=== PATIENT | female | born 1955 | race Caucasian/White ===

== ENCOUNTER 2021-12-06 10:42 | Outpatient (CLI) | payer OTHER | END 2021-12-06 10:43 | disposition home or self-care (01) | LOC: DTY/OP 10:42 | PROVIDERS: ATTEND Specialist | DX: E66.01 Morbid (severe) obesity due to excess calories (principal) | CPT/HCPCS: 97802 ==

== ENCOUNTER 2022-01-02 06:54 | Outpatient (CLI) | payer MEDICARE | END 2022-01-02 06:55 | disposition home or self-care (01) | LOC: BICULT 06:54 | PROVIDERS: ATTEND Specialist | DX: R10.11 Right upper quadrant pain (principal); K80.20 Calculus of gallbladder without cholecystitis without obstruction | CPT/HCPCS: 76705 ==

== ENCOUNTER 2022-01-19 10:52 | Outpatient (CLI) | payer MEDICARE ==
[2022-01-19 12:24] LABS: #Basophils 0.1 10x3/uL (0.0-0.2); #Eosinphils 0.1 10x3/uL (0.0-0.5); #Monocytes 0.8 10x3/uL (0.0-1.1); #Neutrophils 6.5 10x3/uL (1.5-8.4); %Basophils 0.9 % (0.0-2.0); %Eosinophils 1.1 % (0.0-6.0); %Lymphocytes 25.5 % (18.0-47.0); %Monocytes 7.5 % (0.0-10.0); %Neutrophils 64.6 % (40.0-75.0); Hemoglobin 14.4 g/dL (12.0-15.5); Mean Corpuscular HGB CONC 32.6 g/dL (32.0-36.0); Mean Corpuscular Hemoglobin 29.8 pg (27.0-33.0); Mean Corpuscular Volume 91.5 fl (81.6-98.3); Mean Platelet Volume 10.5 fl (7.4-10.4); Platelet Count 408 10x3/uL (150-450); RBC Distribution Width 13.2 % (11.5-14.5); Red Blood Cell (RBC) Count 4.83 10x6/uL (3.90-5.03); White Blood Cell (WBC) Count 10.1 10x3/uL (3.5-10.5)
[2022-01-19 12:51] LABS: ALT (SGPT) 19 U/L (8-55); AST (SGOT) 16 U/L (5-34); Albumin 4.1 g/dL (3.4-4.8); Alkaline Phosphatase 81 U/L (40-110); Anion Gap 15 mmol/L (10-20); BUN (Urea Nitrogen) 25 mg/dL (9.8-20.1); Bilirubin, Total 0.6 mg/dL (0.2-1.2); Calc. Creatinine Clearance 0 mL/min (70-130); Calcium 9.9 mg/dL (7.8-10.44); Carbon Dioxide 25 mmol/L (23-31); Chloride 104 mmol/L (98-107); Estimated GFR 83; Globulin 2.7 g/dL (2.4-3.5); Glucose 85 mg/dL (80-115); Potassium 4.5 mmol/L (3.5-5.1); Protein, Total 6.8 g/dL (5.8-8.1); Sodium 139 mmol/L (136-145)
== END 2022-01-19 10:53 | disposition home or self-care (01) ==
LOC: LABBT 10:52
PROVIDERS: ATTEND Specialist
DX: Z01.812 Encounter for preprocedural laboratory examination (principal); Z20.822 Contact with and (suspected) exposure to COVID-19
CPT/HCPCS: 80053; 85025; 87811

== ENCOUNTER 2022-01-19 11:30 | Inpatient (IN) | payer MEDICARE, OTHER ==
[2022-01-22 11:57] VITALS: BMI 45.4
[2022-01-24] MEDS ORDERED: CEFAZOLIN 2 GM VIAL ONE ×2 (06:20→07:16)
[2022-01-24] MEDS ORDERED: Acetaminophen 500 MG TAB ONE (06:20)
[2022-01-24] MEDS ORDERED: Ketorolac Tromethamine 30 MG/ML VIAL ONE (06:20)
[2022-01-24] MEDS ORDERED: Lidocaine 1% MPF 2 ML VIAL ONE (06:20)
[2022-01-24] MEDS ORDERED: Sodium Chloride 0.9% 100 ML ONE ×2 (06:21→07:16)
[2022-01-24] MEDS ORDERED: fentaNYL Citrate/PF 100 MCG/2 ML SYRINGE ONE (06:40)
[2022-01-24] MEDS ORDERED: Lidocaine 1% w/Epinephrine 1:200K 30 ML VIAL ONE (06:47)
[2022-01-24] MEDS ORDERED: Bupivacaine PF 0.5% 30 ML VIAL ONE (06:47)
[2022-01-24] MEDS ORDERED: Xylocaine 1% w/ Epi 1:100K 10 ML VIAL ONE (06:47)
[2022-01-24] MEDS ORDERED: Famotidine/PF 20 mg/2ml Vial ONE (07:03)
[2022-01-24] MEDS ORDERED: Midazolam HCl 2 mg/2 ml Vial ONE (07:03)
[2022-01-24] MEDS ORDERED: Scopolamine 1.5 mg/72 hour Patch ONE (07:03)
[2022-01-24] MEDS ORDERED: Meperidine HCl/PF 25 MG/ML VIAL SLOW IVP PRN ×2 (07:06)
[2022-01-24] MEDS ORDERED: Ondansetron HCl/PF 4 MG/2 ML Vial IVP PRN (07:06)
[2022-01-24] MEDS ORDERED: HYDROmorphone 2 MG/ML VIAL SLOW IVP PRN (07:06)
[2022-01-24] MEDS ORDERED: Promethazine HCl 25 MG/ML VIAL IM PRN ×3 (07:06→10:56)
[2022-01-24] MEDS ORDERED: Promethazine HCl 25 MG/ML VIAL IVPB PRN (07:06)
[2022-01-24] MEDS ORDERED: diphenhydrAMINE 50 MG/ML VIAL ONE (07:22)
[2022-01-24] MEDS ORDERED: Lidocaine 1% PF 5 ML VIAL ONE (07:22)
[2022-01-24] MEDS ORDERED: Dexamethasone 20 MG/5 ML VIAL ONE (07:22)
[2022-01-24] MEDS ORDERED: Phenylephrine 10 MG/ML VIAL ONE (07:22)
[2022-01-24] MEDS ORDERED: ePHEDrine 50 MG/ML VIAL ONE (07:22)
[2022-01-24] MEDS ORDERED: Rocuronium Bromide 10 MG/ML (10ML VIAL) ONE (07:22)
[2022-01-24] MEDS ORDERED: Glycopyrrolate 0.2 MG/ML 5 ML SYRINGE ONE (07:22)
[2022-01-24] MEDS ORDERED: PROPOFOL 200 MG/20 ML VIAL ONE (07:22)
[2022-01-24] MEDS ORDERED: Ondansetron PF 4 MG/2 ML Vial ONE (07:22)
[2022-01-24] MEDS ORDERED: Bupivacaine 0.25% 10 ML VIAL ONE (07:55)
[2022-01-24] MEDS ORDERED: HYDROmorphone 0.5 MG/0.5 ML SYRINGE ONE (10:12)
[2022-01-24] MEDS ORDERED: diphenhydrAMINE 50 MG/ML VIAL IVP PRN ×2 (10:21→10:56)
[2022-01-24] MEDS ORDERED: fentaNYL Citrate/PF 2,000 MCG in Sodium Chloride 0.9% 60 ML IV PRN (10:21)
[2022-01-24] MEDS ORDERED: Naloxone HCl 0.4 mg/ml Vial IV PRN (10:21)
[2022-01-24] MEDS ORDERED: Ondansetron PF 4 MG/2 ML Vial IVP PRN (10:21)
[2022-01-24] MEDS ORDERED: Zolpidem Tartrate 5 MG TAB PO PRN (10:21)
[2022-01-24] MEDS ORDERED: diphenhydrAMINE 50 MG/ML VIAL IM PRN (10:21)
[2022-01-24] MEDS ORDERED: diphenhydrAMINE 25 MG CAP PO PRN (10:21)
[2022-01-24] MEDS ORDERED: Communication Order-Pharmacy FS SCH (10:30)
[2022-01-24] MEDS ORDERED: Hydrocodone-Acetamin 15 ML UDCUP PO PRN (10:56)
[2022-01-24] MEDS ORDERED: Morphine 4 MG/ML VIAL SLOW IVP PRN (10:56)
[2022-01-24] MEDS ORDERED: hydrALAZINE 20 MG/ML VIAL SLOW IVP PRN (10:56)
[2022-01-24] MEDS ORDERED: Morphine 2 MG/ML VIAL SLOW IVP PRN (10:56)
[2022-01-24] MEDS ORDERED: D5 1/2 NS w/20 mEq KCL 1,000 ML IV SCH (11:00)
[2022-01-24] MEDS ORDERED: Lidocaine 1% (PF) 30 ML VIAL ONE (13:38)
[2022-01-24] MEDS: D5 1/2 NS w/20 mEq KCL 1,000 ML IV SCH (13:42)
[2022-01-24] MEDS: Ketorolac Tromethamine 30 MG/ML VIAL IVP SCH ×3 (13:42→23:17)
[2022-01-24] MEDS: CEFAZOLIN 2 GM in Sodium Chloride 0.9% 100 ML IVPB SCH (16:47)
[2022-01-24] MEDS: Ondansetron PF 4 MG/2 ML Vial IVP PRN ×2 (17:44→23:17)
[2022-01-24] MEDS: busPIRone HCl 10 MG TAB PO SCH (21:04)
[2022-01-24] MEDS: Enoxaparin Sodium 40 MG/0.4 ML SYRINGE SC SCH (21:04)
[2022-01-24] MEDS: Lisinopril 5 MG TAB PO SCH (21:05)
[2022-01-25] MEDS: CEFAZOLIN 2 GM in Sodium Chloride 0.9% 100 ML IVPB SCH (00:08)
[2022-01-25] MEDS: D5 1/2 NS w/20 mEq KCL 1,000 ML IV SCH ×3 (00:08→21:09)
[2022-01-25] MEDS: Ketorolac Tromethamine 30 MG/ML VIAL IVP SCH ×3 (05:53→18:32)
[2022-01-25 06:57] LABS: #Lymphocytes 1.2 thou/uL (1.20-3.40); #Monocytes 1.6 thou/uL (0.11-0.59); #Neutrophils 15.8 thou/uL (1.40-6.50); %Basophils 0.1 % (0.0-1.0); %Eosinophils 0.1 % (0.0-10.0); %Lymphocytes 6.3 % (21.0-51.0); %Monocytes 8.5 % (0.0-10.0); %Neutrophils 85.1 % (42.0-75.0); Hemoglobin 12.5 g/dL (12.0-16.0); Mean Corpuscular HGB CONC 33.2 g/dL (32.0-36.0); Mean Corpuscular Volume 93.4 fL (78.0-98.0); Mean Platelet Volume 7.8 fL (7.4-10.4); Platelet Count 319 thou/uL (130-400); RBC Distribution Width 12.3 % (11.5-14.5); Red Blood Cell (RBC) Count 4.05 mill/uL (4.20-5.40); White Blood Cell (WBC) Count 18.5 thou/uL (4.8-10.8)
[2022-01-25 07:23] LABS: ALT (SGPT) 238 U/L (8-55); AST (SGOT) 184 U/L (5-34); Albumin 3.3 g/dL (3.4-4.8); Alkaline Phosphatase 79 U/L (40-110); Anion Gap 12 mmol/L (10-20); BUN (Urea Nitrogen) 15 mg/dL (9.8-20.1); Bilirubin, Total 0.5 mg/dL (0.2-1.2); Calc. Creatinine Clearance 111 mL/min (70-130); Calcium 8.5 mg/dL (7.8-10.44); Carbon Dioxide 23 mmol/L (23-31); Chloride 105 mmol/L (98-107); Estimated GFR 78; Globulin 2.6 g/dL (2.4-3.5); Glucose 135 mg/dL (80-115); Potassium 4.8 mmol/L (3.5-5.1); Protein, Total 5.9 g/dL (5.8-8.1); Sodium 135 mmol/L (136-145)
[2022-01-25] MEDS: busPIRone HCl 10 MG TAB PO SCH ×2 (09:20→21:09)
[2022-01-25] MEDS: Pantoprazole 40 MG VIAL IVP SCH (09:20)
[2022-01-25] MEDS: Lisinopril 5 MG TAB PO SCH (21:08)
[2022-01-25] MEDS: Enoxaparin Sodium 40 MG/0.4 ML SYRINGE SC SCH (21:09)
[2022-01-26] MEDS: Ketorolac Tromethamine 30 MG/ML VIAL IVP SCH ×4 (01:36→12:21)
[2022-01-26] MEDS: D5 1/2 NS w/20 mEq KCL 1,000 ML IV SCH ×3 (03:39→17:19)
[2022-01-26 05:49] LABS: #Lymphocytes 1.6 thou/uL (1.20-3.40); #Monocytes 0.9 thou/uL (0.11-0.59); #Neutrophils 8.6 thou/uL (1.40-6.50); %Eosinophils 0.1 % (0.0-10.0); %Lymphocytes 14.2 % (21.0-51.0); %Monocytes 8.3 % (0.0-10.0); %Neutrophils 77.4 % (42.0-75.0); Mean Corpuscular HGB CONC 32.4 g/dL (32.0-36.0); Mean Corpuscular Hemoglobin 30.8 pg (27.0-31.0); Mean Corpuscular Volume 94.8 fL (78.0-98.0); Mean Platelet Volume 7.8 fL (7.4-10.4); Platelet Count 267 thou/uL (130-400); RBC Distribution Width 12.4 % (11.5-14.5); Red Blood Cell (RBC) Count 3.26 mill/uL (4.20-5.40)
[2022-01-26] MEDS ORDERED: Hydrocodone-Acetamin 15 ML UDCUP PO PRN (06:00)
[2022-01-26] MEDS: Pantoprazole 40 MG VIAL IVP SCH (09:02)
[2022-01-26] MEDS: busPIRone HCl 10 MG TAB PO SCH (09:02)
[2022-01-26 11:15] VITALS: BP 132/74; TEMP 98.4
== END 2022-01-26 15:05 | disposition home or self-care (01) | DRG 620 ==
LOC: EDSTATUS 11:30 → SURG A 01-24 05:43 → SURG B 01-24 12:16
PROVIDERS: ADMIT Specialist; ATTEND Specialist
PROC: 0DB64Z3 Excision of Stomach, Percutaneous Endoscopic Approach, Vertical (ICD-10-PCS; principal; 2022-01-24)
PROC: 0FT44ZZ Resection of Gallbladder, Percutaneous Endoscopic Approach (ICD-10-PCS; 2022-01-24)
PROC: 0UB70ZZ Excision of Bilateral Fallopian Tubes, Open Approach (ICD-10-PCS; 2022-01-24)
PROC: 0UB20ZZ Excision of Bilateral Ovaries, Open Approach (ICD-10-PCS; 2022-01-24)
DX: E66.01 Morbid (severe) obesity due to excess calories (principal); K80.12 Calculus of gallbladder with acute and chronic cholecystitis without obstruction; Z68.42 Body mass index [BMI] 45.0-49.9, adult; F41.9 Anxiety disorder, unspecified; F32.A Depression, unspecified; M19.90 Unspecified osteoarthritis, unspecified site; I10 Essential (primary) hypertension; E78.5 Hyperlipidemia, unspecified; M79.7 Fibromyalgia; G47.00 Insomnia, unspecified; N83.202 Unspecified ovarian cyst, left side; N83.201 Unspecified ovarian cyst, right side; Z79.899 Other long term (current) drug therapy; Z79.51 Long term (current) use of inhaled steroids; Z90.89 Acquired absence of other organs; Z90.710 Acquired absence of both cervix and uterus; Z53.31 Laparoscopic surgical procedure converted to open procedure
CPT/HCPCS: 36415; 80053; 85025; 88304; 88307; A4649; C1713; C9113; J0690; J1100; J1170; J1200; J1650; J1885; J2250; J2370; J2405; J2550; J2704; J2710; J3480; J3490; S0020; S0028

== ENCOUNTER 2023-04-18 09:43 | Outpatient (CLI) | payer OTHER ==
[2023-04-18 11:06] LABS: #Basophils 0.1 10x3/uL (0.0-0.2); #Eosinphils 0.1 10x3/uL (0.0-0.5); #Monocytes 0.5 10x3/uL (0.0-1.1); #Neutrophils 3.2 10x3/uL (1.5-8.4); %Basophils 1.2 % (0.0-2.0); %Eosinophils 1.4 % (0.0-6.0); %Lymphocytes 41.5 % (18.0-47.0); %Monocytes 7.3 % (0.0-10.0); %Neutrophils 48.4 % (40.0-75.0); Hemoglobin 13.7 g/dL (12.0-15.5); Mean Corpuscular HGB CONC 32.6 g/dL (32.0-36.0); Mean Corpuscular Hemoglobin 29.7 pg (27.0-33.0); Mean Corpuscular Volume 91.1 fl (81.6-98.3); Mean Platelet Volume 10.2 fl (7.4-10.4); Platelet Count 301 10x3/uL (150-450); RBC Distribution Width 13.5 % (11.5-14.5); Red Blood Cell (RBC) Count 4.61 10x6/uL (3.90-5.03); White Blood Cell (WBC) Count 6.6 10x3/uL (3.5-10.5)
[2023-04-18 11:24] LABS: Prothrombin Time 10.5 sec (9.5-12.1)
[2023-04-18 11:29] LABS: Anion Gap 13 mmol/L (10-20); BUN (Urea Nitrogen) 21 mg/dL (9.8-20.1); Calc. Creatinine Clearance 0 mL/min (70-130); Calcium 9.3 mg/dL (7.8-10.44); Carbon Dioxide 24 mmol/L (23-31); Chloride 109 mmol/L (98-107); Estimated GFR 85; Glucose 92 mg/dL (80-115); Potassium 4.1 mmol/L (3.5-5.1); Sodium 142 mmol/L (136-145)
== END 2023-04-18 09:44 | disposition home or self-care (01) ==
LOC: LABBT 09:43
PROVIDERS: ATTEND Orthopaedic Surgery
DX: Z01.818 Encounter for other preprocedural examination (principal); M17.11 Unilateral primary osteoarthritis, right knee
CPT/HCPCS: 80048; 85025; 85610; 87081; 93005; 93010

== ENCOUNTER 2023-04-22 06:12 | Observation (INO) | payer OTHER ==
[2023-04-18 10:27] VITALS: BMI 31.1
[2023-04-22] MEDS ORDERED: EPINEPHrine 1 MG/ML VIAL ONE (08:15)
[2023-04-22] MEDS ORDERED: fentaNYL 50 mcg/mL 1 mL Vial ONE ×7 (08:16→12:47)
[2023-04-22] MEDS ORDERED: Midazolam HCl 2 mg/2 ml Vial ONE (08:16)
[2023-04-22] MEDS ORDERED: Bupivacaine PF 0.5% 30 ML VIAL ONE ×2 (08:17→10:00)
[2023-04-22] MEDS ORDERED: Vancomycin 1 GM/200 ML (FROZEN) BAG ONE (08:21)
[2023-04-22] MEDS ORDERED: Sodium Chloride 0.9% 100 ML ONE ×2 (08:21→09:18)
[2023-04-22] MEDS ORDERED: Tranexamic Acid 1,000 MG/10 ML VIAL ONE (08:21)
[2023-04-22] MEDS ORDERED: Ondansetron PF 4 MG/2 ML Vial ONE (09:00)
[2023-04-22] MEDS ORDERED: Dexamethasone 20 MG/5 ML VIAL ONE (09:00)
[2023-04-22] MEDS ORDERED: PROPOFOL 200 MG/20 ML VIAL ONE (09:00)
[2023-04-22] MEDS ORDERED: diphenhydrAMINE 50 MG/ML VIAL ONE (09:00)
[2023-04-22] MEDS ORDERED: Ketorolac Tromethamine 30 MG/ML VIAL ONE (09:00)
[2023-04-22] MEDS ORDERED: CEFAZOLIN 2 GM VIAL ONE (09:18)
[2023-04-22] MEDS ORDERED: fentaNYL PF 100 MCG/2 ML SYRINGE ONE (09:23)
[2023-04-22] MEDS ORDERED: Lidocaine 2% 6 ML (Jelly) SYR ONE (09:23)
[2023-04-22] MEDS ORDERED: Ondansetron PF 4 MG/2 ML Vial IVP PRN (09:30)
[2023-04-22] MEDS ORDERED: Acetaminophen 325 MG TAB PO PRN (09:30)
[2023-04-22] MEDS ORDERED: traMADol HCl 50 MG TAB PO PRN ×2 (09:30)
[2023-04-22] MEDS ORDERED: Ropivacaine 0.2% 550 ML 550 ML NERVE BLCK SCH (09:30)
[2023-04-22] MEDS ORDERED: Zolpidem Tartrate 5 MG TAB PO PRN ×2 (09:30)
[2023-04-22] MEDS ORDERED: diphenhydrAMINE 25 MG CAP PO PRN (09:30)
[2023-04-22] MEDS ORDERED: Promethazine HCl 25 MG/ML VIAL IM PRN ×3 (09:30→09:54)
[2023-04-22] MEDS ORDERED: HYDROcodone/Acetaminophen 10/325 mg Tablet PO PRN ×2 (09:30)
[2023-04-22] MEDS ORDERED: Ondansetron HCl/PF 4 MG/2 ML Vial IVP PRN (09:54)
[2023-04-22] MEDS ORDERED: HYDROmorphone 2 MG/ML VIAL SLOW IVP PRN (09:54)
[2023-04-22] MEDS ORDERED: EPINEPHrine 1 MG/ML AMP ONE (10:00)
[2023-04-22] MEDS ORDERED: HYDROmorphone 0.5 MG/0.5 ML SYRINGE ONE (12:07)
[2023-04-22] MEDS: Ondansetron PF 4 MG/2 ML Vial IVP PRN (14:33)
[2023-04-22] MEDS: fentaNYL 50 mcg/mL 1 mL Vial SLOW IVP PRN (14:34)
[2023-04-22] MEDS: Ketorolac Tromethamine 30 MG/ML VIAL IVP SCH ×2 (14:35→17:10)
[2023-04-22] MEDS: Sodium Chloride 0.9% 1,000 ML IV SCH ×2 (14:44→17:15)
[2023-04-22] MEDS: CEFAZOLIN 2 GM in Sodium Chloride 0.9% 100 ML IVPB SCH (17:10)
[2023-04-22] MEDS: Aspirin 81 mg Enteric Coated Tablet PO SCH (22:15)
[2023-04-22] MEDS: Senokot S 8.6-50 MG TAB PO SCH (22:15)
[2023-04-22] MEDS: Ferrous Gluconate 324 MG TAB PO SCH (22:15)
[2023-04-23] MEDS: Ketorolac Tromethamine 30 MG/ML VIAL IVP SCH ×4 (00:18→17:32)
[2023-04-23] MEDS: CEFAZOLIN 2 GM in Sodium Chloride 0.9% 100 ML IVPB SCH (00:18)
[2023-04-23 05:12] LABS: Hemoglobin 10.6 g/dL (12.0-16.0); Mean Corpuscular HGB CONC 32.1 g/dL (32.0-36.0); Mean Corpuscular Hemoglobin 30.3 pg (27.0-31.0); Mean Corpuscular Volume 94.3 fl (78.0-98.0); Mean Platelet Volume 10.4 fL (7.4-10.4); Platelet Count 227 10x3/uL (130-400); RBC Distribution Width 13.5 % (11.5-14.5); White Blood Cell (WBC) Count 8.1 10x3/uL (4.8-10.8)
[2023-04-23] MEDS: Sodium Chloride 0.9% 1,000 ML IV SCH ×2 (06:12→17:33)
[2023-04-23] MEDS: Multivitamin W/ Minerals 1 TAB PO SCH (08:28)
[2023-04-23] MEDS: Aspirin 81 mg Enteric Coated Tablet PO SCH ×2 (08:28→21:42)
[2023-04-23] MEDS: Ferrous Gluconate 324 MG TAB PO SCH ×2 (08:29→21:42)
[2023-04-23] MEDS: Senokot S 8.6-50 MG TAB PO SCH ×2 (08:29→21:45)
[2023-04-24] MEDS: Sodium Chloride 0.9% 1,000 ML IV SCH (00:30)
[2023-04-24] MEDS: Ketorolac Tromethamine 30 MG/ML VIAL IVP SCH ×2 (00:40→05:59)
[2023-04-24] MEDS: fentaNYL 50 mcg/mL 1 mL Vial SLOW IVP PRN (00:49)
[2023-04-24] MEDS: Ondansetron PF 4 MG/2 ML Vial IVP PRN (06:33)
[2023-04-24 08:41] VITALS: TEMP 98.2
[2023-04-24] MEDS ORDERED: Cyclobenzaprine 10 MG TAB PO PRN ×2 (08:46→08:51)
[2023-04-24] MEDS: Senokot S 8.6-50 MG TAB PO SCH (09:16)
[2023-04-24] MEDS: Multivitamin W/ Minerals 1 TAB PO SCH (09:17)
[2023-04-24] MEDS: Ferrous Gluconate 324 MG TAB PO SCH (09:17)
[2023-04-24] MEDS: Aspirin 81 mg Enteric Coated Tablet PO SCH (09:17)
[2023-04-24] MEDS ORDERED: fentaNYL 50 mcg/mL 1 mL Vial ONE (11:38)
[2023-04-24 11:53] VITALS: BP 120/70
== END 2023-04-24 12:57 | disposition home or self-care (01) ==
LOC: SDC 06:12 → SURG A 12:39
PROVIDERS: ADMIT Orthopaedic Surgery; ATTEND Orthopaedic Surgery
PROC: 0SRC0JZ Replacement of Right Knee Joint with Synthetic Substitute, Open Approach (ICD-10-PCS; principal; 2023-04-22)
DX: M17.11 Unilateral primary osteoarthritis, right knee (principal); I10 Essential (primary) hypertension; M17.32 Unilateral post-traumatic osteoarthritis, left knee; F41.9 Anxiety disorder, unspecified; F32.A Depression, unspecified; E66.9 Obesity, unspecified; Z68.31 Body mass index [BMI] 31.0-31.9, adult; Z88.5 Allergy status to narcotic agent; Z90.49 Acquired absence of other specified parts of digestive tract; Z90.710 Acquired absence of both cervix and uterus; Z79.899 Other long term (current) drug therapy
CPT/HCPCS: 27447; 73560; 85027; 97110 ×2; 97116 ×3; 97530; A4306; C1776; J0171; J3010 ×2; J3370; 36415; J1100; J1170; J1200; J1885; J2250; J2405; J2704; J2795; J3490; J7050; S0020

== ENCOUNTER 2023-07-26 09:53 | Outpatient (CLI) | payer OTHER ==
[2023-07-26 10:42] LABS: #Basophils 0.1 10x3/uL (0.0-0.2); #Eosinphils 0.1 10x3/uL (0.0-0.5); #Monocytes 0.5 10x3/uL (0.0-1.1); #Neutrophils 3.5 10x3/uL (1.5-8.4); %Eosinophils 0.9 % (0.0-6.0); %Lymphocytes 30.5 % (18.0-47.0); %Monocytes 7.8 % (0.0-10.0); %Neutrophils 59.6 % (40.0-75.0); Hematocrit 41.8 % (34.9-44.5); Mean Corpuscular HGB CONC 33.5 g/dL (32.0-36.0); Mean Corpuscular Hemoglobin 30.4 pg (27.0-33.0); Mean Corpuscular Volume 90.7 fl (81.6-98.3); Mean Platelet Volume 10.1 fl (7.4-10.4); Platelet Count 308 10x3/uL (150-450); RBC Distribution Width 13.2 % (11.5-14.5); Red Blood Cell (RBC) Count 4.61 10x6/uL (3.90-5.03); White Blood Cell (WBC) Count 5.9 10x3/uL (3.5-10.5)
[2023-07-26 11:11] LABS: Prothrombin Time 10.6 sec (9.5-12.1)
[2023-07-26 11:14] LABS: Anion Gap 10 mmol/L (10-20); BUN (Urea Nitrogen) 14 mg/dL (9.8-20.1); Calc. Creatinine Clearance 0 mL/min (70-130); Calcium 9.1 mg/dL (7.8-10.44); Carbon Dioxide 27 mmol/L (23-31); Chloride 107 mmol/L (98-107); Estimated GFR 86; Glucose 89 mg/dL (80-115); Potassium 4.4 mmol/L (3.5-5.1); Sodium 140 mmol/L (136-145)
== END 2023-07-26 09:54 | disposition home or self-care (01) ==
LOC: LABBT 09:53
PROVIDERS: ATTEND Orthopaedic Surgery
DX: Z01.818 Encounter for other preprocedural examination (principal); M17.12 Unilateral primary osteoarthritis, left knee
CPT/HCPCS: 80048; 85025; 85610; 87081; 93005; 93010